=== PATIENT | male | born 1975 | race Caucasian/White ===

== ENCOUNTER 2021-10-29 05:36 | Day surgery (SDC) | payer OTHER ==
[~2021-10-29] VITALS: Ht 180.3 cm; Wt 141.1 kg
[~2021-10-29 05:36] MED LIST: LABETALOL 20 MG/4 ML VIAL IVP PRN
[2021-10-29] MEDS ORDERED: LIDOCAINE/EPI MPF 1%1:200000 30 ML VIAL INJ ONE (07:30)
[2021-10-29] MEDS ORDERED: BUPIVACAINE MPF 0.25% 10 ML VIAL INJ ONE (07:30)
[2021-10-29] MEDS ORDERED: SEVOFLURANE 250 ML BTL INH ONE (08:07)
[2021-10-29] MEDS ORDERED: fentaNYL citrate 0.05 MG/ML VIAL ONE (08:07)
[2021-10-29] MEDS ORDERED: metroNIDAZOLE 500 MG/NS PREMIX 100 ML IV ONE (08:07)
[2021-10-29] MEDS ORDERED: ceFAZolin 1,000 MG VIAL ONE (08:07)
[2021-10-29] MEDS ORDERED: PROPOFOL 200 MG/20 ML VIAL IV ONE ×3 (08:30→15:12)
[2021-10-29] MEDS ORDERED: SUCCINYLCHOLINE CHLORIDE 200 MG/10 ML VIAL IVP ONE ×2 (08:31)
[2021-10-29] MEDS ORDERED: ONDANSETRON 4 MG/2 ML VIAL ONE (08:44)
[2021-10-29] MEDS ORDERED: KETOROLAC 30 MG/ML VIAL ONE (08:44)
[2021-10-29] MEDS ORDERED: LACTATED RINGERS 1,000 ML IV SCH (09:40)
[2021-10-29] MEDS ORDERED: HYDROmorphone 1 MG/ML AMP IVP PRN (09:40)
[2021-10-29] MEDS ORDERED: ONDANSETRON 4 MG/2 ML VIAL IVP PRN (09:40)
[2021-10-29] MEDS ORDERED: hydrALAZINE 20 MG/ML VIAL IVP PRN (09:41)
[2021-10-29] MEDS ORDERED: ePHEDrine 50 MG/ML VIAL ONE ×3 (15:12→15:17)
== END 2021-10-29 12:10 | disposition home or self-care (01) ==
LOC: MOR 05:36 → MMU 05:39 → MOR 12:10
PROVIDERS: ATTEND Surgery
DX: K62.9 Disease of anus and rectum, unspecified (principal); D37.8 Neoplasm of uncertain behavior of other specified digestive organs; I11.0 Hypertensive heart disease with heart failure; I50.9 Heart failure, unspecified; E66.01 Morbid (severe) obesity due to excess calories; Z90.49 Acquired absence of other specified parts of digestive tract; Z90.89 Acquired absence of other organs; G40.909 Epilepsy, unspecified, not intractable, without status epilepticus; Z68.41 Body mass index [BMI] 40.0-44.9, adult; Z20.822 Contact with and (suspected) exposure to COVID-19; Z79.899 Other long term (current) drug therapy
CPT/HCPCS: 45172; 71045; 87426; 88305; J0330; J0690; J1885; J2001; J2405; J2704; J3010; J3490